=== PATIENT | female | born 1985 | race Caucasian/White ===

== ENCOUNTER 2018-05-01 10:11 | Emergency (ER) | payer BC ==
[2018-05-01] MEDS ORDERED: ONDANSETRON 4 MG (ODT) TAB ONE (10:55)
[2018-05-01] MEDS ORDERED: DIAZEPAM 5 MG TABLET ONE (11:03)
--- NOTE | 2018-05-01 12:00 | RAD REPORT ---
EXAM DESCRIPTION: CT - Head Brain Wo Cont - 05/01/2018 11:31 am CLINICAL HISTORY: Left-sided numbness COMPARISON: None. TECHNIQUE: Computed axial tomography of the head was obtained. IV contrast was not requested. All CT scans are performed using dose optimization technique as appropriate and may include automated exposure control or mA/KV adjustment according to patient size. FINDINGS: An intracranial bleed is not seen . The ventricles are normal in caliber. No extra-axial fluid collection is noted. Fluid within the sinuses/ mastoids is not seen. IMPRESSION: No acute intracranial abnormality is seen. If patient's symptoms persist MRI of the bra in would be recommended.
[2018-05-01 12:10] LABS: Urine Blood NEGATIVE (NEG); Urine Glucose NEGATIVE (NEG); Urine Protein NEGATIVE (NEG); Urine Specific Gravity 1.015 (1.005-1.030); Urine pH 7.5 (5.0-7.0)
[2018-05-01] MEDS ORDERED: DEXAMETHASONE 10 MG/ML VIAL ONE (12:43)
[2018-05-01] MEDS ORDERED: KETOROLAC 30 MG/ML INJ ONE (12:44)
[2018-05-01] MEDS ORDERED: MECLIZINE HCL 12.5 MG TAB ONE (12:44)
[2018-05-01] MEDS ORDERED: NA CHLORIDE 0.9% 1,000 ML ONE (12:44)
--- NOTE | 2018-05-01 14:18 | EDPHYS ---
Physician Documentation [facility] Name: Priyanka Brady Age: 33 yrs Sex: Female : 1985 Arrival Date: 05/01/2018 Time: 10:13 Bed 13 Private MD: ED Physician Jaciel Torres HPI: 05/01 11:00 This 33 yrs old Female presents to ER via Ambulatory with complaints of pm1 Headache, Dizziness, Numbness Of Face. 11:00 The patient complains of pain to the forehead. The patient describes the headache as pm1 constant. Onset: The symptoms/episode began/occurred last night. Associated signs and symptoms: Pertinent positives: Vertigo room spinning, Pertinent negatives: altered mental status, fever, focal deficits. The symptoms are alleviated by closing eyes and staying still the symptoms are aggravated by movement of head . The patient has not experienced similar symptoms in the past. Patient with upper respiratory complaints, cough, runny nose and sinus congestion for the past few days. 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 - Social history:: Smoking status: Patient/guardian denies using tobacco. - Ebola Screening: : Patient negative for fever greater than or equal to 101.5 degrees Fahrenheit, and additional compatible Ebola Virus Disease symptoms Patient denies exposure to infectious person Patient denies travel to an Ebola-affected area in the 21 days before illness onset No symptoms or risks identified at this time. ROS: 11:00 Constitutional: Negative for fever, chills, and weight loss, Eyes: Negative for injury, pm1 pain, redness, and discharge, ENT: Negative for injury, pain, and discharge, Neck: Negative for injury, pain, and swelling, Cardiovascular: Negative for chest pain, palpitations, and edema, Respiratory: Negative for shortness of breath, cough, wheezing, and pleuritic chest pain, Abdomen/GI: Negative for abdominal pain, nausea, vomiting, diarrhea, and constipation, Back: Negative for injury and pain, : Negative for injury, bleeding, discharge, and swelling, MS/Extremity: Negative for injury and deformity, Skin: Negative for injury, rash, and discoloration. 11:00 Psych: Negative for depression, anxiety, suicide ideation, homicidal ideation, and hallucinations. 11:00 Neuro: Positive for vertigo, tingling of left side of face, Negative for altered mental status. Exam: 11:00 Constitutional: This is a well developed, well nourished patient who is awake, alert, pm1 and in no acute distress. Head/Face: Normocephalic, atraumatic. Eyes: Pupils equal round and reactive to light, extra-ocular motions intact. Lids and lashes normal. Conjunctiva and sclera are non-icteric and not injected. Cornea within normal limits. Periorbital areas with no swelling, redness, or edema. ENT: Nares patent. No nasal discharge, no septal abnormalities noted. Tympanic membranes are normal and external auditory canals are clear. Oropharynx with no redness, swelling, or masses, exudates, or evidence of obstruction, uvula midline. Mucous membranes moist. Neck: Trachea midline, no thyromegaly or masses palpated, and no cervical lymphadenopathy. Supple, full range of motion without nuchal rigidity, or vertebral point tenderness. No Meningismus. Chest/axilla: Normal chest wall appearance and motion. Nontender with no deformity. No lesions are appreciated. Cardiovascular: Regular rate and rhythm with a normal S1 and S2. No gallops, murmurs, or rubs. Normal PMI, no JVD. No pulse deficits. Respiratory: Lungs have equal breath sounds bilaterally, clear to auscultation and percussion. No rales, rhonchi or wheezes noted. No increased work of breathing, no retractions or nasal flaring. Abdomen/GI: Soft, non-tender, with normal bowel sounds. No distension or tympany. No guarding or rebound. No evidence of tenderness throughout. Back: No spinal tenderness. No costovertebral tenderness. Full range of motion. Skin: Warm, dry with normal turgor. Normal color with no rashes, no lesions, and no evidence of cellulitis. MS/ Extremity: Pulses equal, no cyanosis. Neurovascular intact. Full, normal range of motion. 11:00 Neuro: Orientation: is normal, Mentation: is normal, Cranial nerves: normal except vestibular nystagmus, Cerebellar function: normal finger to nose testing, heel to gupta testing is normal, Motor: moves all fours, strength is normal, strength is 5/5 in all extremities, Sensation: is normal, no obvious gross deficits, [place] Hallpike test positive. Patient with rapid onset of vertigo, nausea with maneuver. Patient closed eyes and symptoms resolved in less than 15 seconds. Vital Signs: 10:33 BP 144 / 78; Pulse 98; Resp 20; Temp 97.5; Pulse Ox 98% on R/A; Weight 83.91 kg; Height aj 5 ft. 5 in. (165.10 cm); 12:04 BP 141 / 81; Pulse 86; Resp 18; Temp 97.6(O); Pulse Ox 99% on R/A; mh5 14:00 BP 135 / 80; Pulse 79; Resp 16 S; Pulse Ox 100% on R/A; jl7 10:33 Body Mass Index 30.79 (83.91 kg, 165.10 cm) aj MDM: 10:37 Patient medically screened. [facility] 14:13 Data reviewed: vital signs. Data interpreted: Pulse oximetry: on room air is 99 %. pm1 Interpretation: normal. Counseling: I had a detailed discussion with the patient and/or guardian regarding: the historical points, exam findings, and any diagnostic results supporting the discharge/admit diagnosis, radiology results, the need for outpatient follow up, to return to the emergency department if symptoms worsen or persist or if there are any questions or concerns that arise at home. 05/01 11:15 Order name: Urine Dipstick--Ancillary (enter results) 05/01 11:15 Order name: Urine --Ancillary (enter results); Complete Time: 12:12 ag 05/01 10:47 Order name: CT Head Brain wo Cont; Complete Time: 12:12 pm1 05/01 11:16 Order name: Urine Dipstick-Ancillary; Complete Time: 12:12 EDMS 05/01 10:47 Order name: Urine Dipstick-Ancillary (obtain specimen); Complete Time: 11:11 pm1 05/01 10:47 Order name: Urine Test (obtain specimen); Complete Time: 11:11 pm1 05/01 12:17 Order name: IV Saline Lock; Complete Time: 13:16 pm1 Administered Medications: 10:48 Drug: Zofran 4 mg Route: PO; jl7 11:11 Drug: Valium 5 mg Route: PO; jl7 12:00 Follow up: Response: No adverse reaction; No change in condition jl7 12:50 Drug: Meclizine 50 mg Route: PO; jl7 13:45 Follow up: Response: No adverse reaction; Marked relief of symptoms jl7 13:15 Drug: TORadol 30 mg Route: IVP; Site: right upper arm; jl7 14:00 Follow up: Response: No adverse reaction; Pain is decreased jl7 13:15 Drug: Decadron - Dexamethasone 10 mg Route: IVP; Site: right upper arm; iw 13:45 Follow up: Response: No adverse reaction; Pain is decreased jl7 13:15 Drug: NS 0.9% 1000 ml Route: IV; Rate: 1000 ml; Site: right upper arm; iw 14:40 Follow up: Response: No adverse reaction; IV Status: Completed infusion jl7 Disposition: 05/01/18 14:18 Discharged to Home. Impression: Benign paroxysmal vertigo, Headache. - Condition is Stable. - Discharge Instructions: Benign Positional Vertigo, General Headache Without Cause, [id number]. - Prescriptions for Meclizine 25 mg Oral Tablet - take 1 tablet by ORAL route every 8 hours As needed; 30 tablet. - Medication Reconciliation Form, Thank You Letter form. - Follow up: Emergency Department; When: As needed; Reason: Worsening of condition. Follow up: Private Physician; When: 2 - 3 days; Reason: Recheck today's complaints, Continuance of care, Re-evaluation by your physician. - Problem is new. - Symptoms have improved. Addendum: 05/05/2018 08:04 Co-signature as Attending Physician, Jaciel Torres MD I agree with the assessment and c valles plan of care. Signatures: Dispatcher [employer] EDDominique Dobson RN RN aj Anderson, Corey, MD MD cha Williams, Irene, RN RN iw Marinas, Patrick, NP CHIEF OF PLANNING pm1 Julia Ortega RN RN jl7 Corrections: (The following items were deleted from the chart) 05/01 14:41 14:18 05/01/2018 14:18 Discharged to Home. Impression: Benign paroxysmal vertigo; jl7 Headache. Condition is Stable. Forms are Medication Reconciliation Form, Thank You Letter, Antibiotic Education, Prescription Opioid Use. Follow up: Emergency Department; When: As needed; Reason: Worsening of condition. Follow up: Private Physician; When: 2 - 3 days; Reason: Recheck today's complaints, Continuance of care, Re-evaluation by your physician. Problem is new. Symptoms have improved. pm1
--- NOTE | 2018-05-01 14:18 | ER ---
Nurse's Notes [facility] Name: Priyanka Brady Age: 33 yrs Sex: Female : 1985 Arrival Date: 05/01/2018 Time: 10:13 Bed 13 Private MD: Diagnosis: Benign paroxysmal vertigo;Headache Presentation: 05/01 10:31 Presenting complaint: Patient states: Numbness and tingling to left side of face that aj started last night at 2200 with dizziness and headache. Face is equal and symmetrical. Patient ambulated to triage with steady gait. Drove herself and two minor children to emergency department after going to urgent care this AM for this complaint. Transition of care: patient was not received from another setting of care. Onset of symptoms was April 30, 2018 at 22:00. Risk Assessment: Do you want to hurt yourself or someone else? Patient reports no desire to harm self or others. Initial Sepsis Screen: Does the patient meet any 2 criteria? No. Patient's initial sepsis screen is negative. Does the patient have a suspected source of infection? No. Patient's initial sepsis screen is negative. Care prior to arrival: None. 10:31 Method Of Arrival: Ambulatory 10:31 Acuity: ROSITA 3 aj Triage Assessment: 10:33 Headache History: The patient has had previous headaches. General: Appears in no aj apparent distress. comfortable, Behavior is calm, cooperative, appropriate for age. Pain: Complains of pain in face and scalp. Neuro: Level of Consciousness is awake, alert, obeys commands, Oriented to person, place, time, situation, Appropriate for age Lens Cleaner are equal bilaterally Moves all extremities. Full function Gait is steady, Speech is normal, Facial symmetry appears normal, Pupils are PERRLA, Reports dizziness, headache. Respiratory: Airway is patent Respiratory effort is even, unlabored, Respiratory pattern is regular, symmetrical. Derm: Skin is intact, is healthy with good turgor, Skin is pink, warm \T\ dry. normal. 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 - Social history:: Smoking status: Patient/guardian denies using tobacco. - Ebola Screening: : Patient negative for fever greater than or equal to 101.5 degrees Fahrenheit, and additional compatible Ebola Virus Disease symptoms Patient denies exposure to infectious person Patient denies travel to an Ebola-affected area in the 21 days before illness onset No symptoms or risks identified at this time. Screenin:00 Abuse screen: Denies threats or abuse. Denies injuries from another. Nutritional jl7 screening: No deficits noted. Tuberculosis screening: No symptoms or risk factors identified. Fall Risk None identified. Assessment: 11:00 General: Appears in no apparent distress. uncomfortable, Behavior is calm, cooperative, jl7 appropriate for age. Pain: Complains of pain in headache Pain does not radiate. Pain currently is 8 out of 10 on a pain scale. Quality of pain is described as throbbing, Is continuous. Neuro: Level of Consciousness is awake, alert, obeys commands, Oriented to person, place, time, situation, Gait is steady, Reports dizziness. Cardiovascular: Patient's skin is warm and dry. Respiratory: Airway is patent Respiratory effort is even, unlabored, Respiratory pattern is regular, symmetrical. GI: Reports nausea. : No signs and/or symptoms were reported regarding the genitourinary system. EENT: No signs and/or symptoms were reported regarding the EENT system. Derm: Skin is pink, warm \T\ dry. 12:00 Reassessment: Patient appears in no apparent distress at this time. No changes from jl7 previously documented assessment. Patient and/or family updated on plan of care and expected duration. Pain level reassessed. Patient is alert, oriented x 3, equal unlabored respirations, skin warm/dry/pink. 13:00 Reassessment: Patient appears in no apparent distress at this time. No changes from jl7 previously documented assessment. Patient and/or family updated on plan of care and expected duration. Pain level reassessed. Patient is alert, oriented x 3, equal unlabored respirations, skin warm/dry/pink. 14:00 Reassessment: Patient appears in no apparent distress at this time. Patient and/or jl7 family updated on plan of care and expected duration. Pain level reassessed. Patient is alert, oriented x 3, equal unlabored respirations, skin warm/dry/pink. Patient states feeling better. Patient states symptoms have improved. Vital Signs: 10:33 BP 144 / 78; Pulse 98; Resp 20; Temp 97.5; Pulse Ox 98% on R/A; Weight 83.91 kg; Height aj 5 ft. 5 in. (165.10 cm); 12:04 BP 141 / 81; Pulse 86; Resp 18; Temp 97.6(O); Pulse Ox 99% on R/A; mh5 14:00 BP 135 / 80; Pulse 79; Resp 16 S; Pulse Ox 100% on R/A; jl7 10:33 Body Mass Index 30.79 (83.91 kg, 165.10 cm) aj ED Course: 10:13 Patient arrived in ED. rg4 10:33 Triage completed. aj 10:33 Arm band placed on left wrist. Patient placed in an exam room. aj 10:35 Abraham Bliss NP is PHCP. pm1 10:35 Jaciel Torres MD is Attending Physician. pm1 10:38 Julia Ortega RN is Primary Nurse. jl7 11:00 Patient has correct armband on for positive identification. Bed in low position. Call jl7 light in reach. Side rails up X 1. Pulse ox on. NIBP on. 11:31 CT Head Brain wo Cont In Process Unspecified. EDMS 11:51 CT completed. Patient moved to CT via wheelchair. Patient moved back from CT. kw1 13:15 Inserted saline lock: 22 gauge in right upper arm, using aseptic technique. iw 14:39 No provider procedures requiring assistance completed. IV discontinued, intact, jl7 bleeding controlled, No redness/swelling at site. Pressure dressing applied. Administered Medications: 10:48 Drug: Zofran 4 mg Route: PO; jl7 11:11 Drug: Valium 5 mg Route: PO; jl7 12:00 Follow up: Response: No adverse reaction; No change in condition jl7 12:50 Drug: Meclizine 50 mg Route: PO; jl7 13:45 Follow up: Response: No adverse reaction; Marked relief of symptoms jl7 13:15 Drug: TORadol 30 mg Route: IVP; Site: right upper arm; jl7 14:00 Follow up: Response: No adverse reaction; Pain is decreased jl7 13:15 Drug: Decadron - Dexamethasone 10 mg Route: IVP; Site: right upper arm; iw 13:45 Follow up: Response: No adverse reaction; Pain is decreased jl7 13:15 Drug: NS 0.9% 1000 ml Route: IV; Rate: 1000 ml; Site: right upper arm; iw 14:40 Follow up: Response: No adverse reaction; IV Status: Completed infusion jl7 Outcome: 14:18 Discharge ordered by MD. pm1 14:39 Discharged to home ambulatory. jl7 14:39 Condition: stable 14:39 Discharge instructions given to patient, Instructed on discharge instructions, follow up and referral plans. medication usage, Demonstrated understanding of instructions, follow-up care, medications, Prescriptions given X 1. 14:41 Patient left the ED. jl7 Signatures: Dispatcher [employer] Dominique Thorne RN RN aj Williams, Irene, RN RN iw Marinas, Patrick, NP INFORMATION LEAD pm1 Micaela Patton Maria mh5 Leal, Jahala, RN RN jl7 Ana Paula Padgett kw1
== END 2018-05-01 14:41 | disposition home or self-care (01) ==
LOC: ER 10:11
DX: H81.10 Benign paroxysmal vertigo, unspecified ear (principal)
CPT/HCPCS: 70450; 81003; 81025; 96361; 96374; 96375; 99284; J1100; J7030